=== PATIENT | female | born 1965 | race Caucasian/White ===

== ENCOUNTER → 2019-03-06 | Outpatient (CLI) | payer BC ==
[~2019-03-06] MED LIST: ACYCLOVIR 800800 MG PO; AMOXICILLIN 50500 MG PO; CELEXA40 MG PO; CENTRUM SILVER1 EAC4 PO; CLONAZEPAM 0.50.5 M1 PO; FISH OIL 1,4001 EACH PO; FLEXERIL PO; FLONASE 0.05%50 MCG NARES; GABAPENTIN100 MG PO; IBUPROFEN 800800 M1 PO; LEXAPRO 10 MG T10 M2 PO; MEDROLDOSEPACK PO; PRILOSEC 20 MG20 MG PO; TYLENOL WITH CO1 TA1 PO; ULTRAM 50MG TAB50 MG PO; VENTOLIN HFA 1818 GM INH; WELLBUTRIN XL150 MG PO
== END ==
LOC: M.PC 13:22
DX: M47.22 Other spondylosis with radiculopathy, cervical region (principal); M47.814 Spondylosis without myelopathy or radiculopathy, thoracic region; M50.10 Cervical disc disorder with radiculopathy, unspecified cervical region; Z88.8 Allergy status to other drugs, medicaments and biological substances; Z79.899 Other long term (current) drug therapy

== ENCOUNTER → 2019-03-08 | Outpatient (CLI) | payer BC | LOC: M.MRI 14:02 | DX: M47.22 Other spondylosis with radiculopathy, cervical region (principal); M25.78 Osteophyte, vertebrae; M48.02 Spinal stenosis, cervical region; M50.122 Cervical disc disorder at C5-C6 level with radiculopathy ==

== ENCOUNTER → 2020-01-13 | Outpatient (CLI) | payer BC | LOC: M.MRI 12-27 15:23 | PROVIDERS: ATTEND Psychiatry & Neurology Neuromuscular Medicine | DX: M50.10 Cervical disc disorder with radiculopathy, unspecified cervical region (principal); R51.9 Headache, unspecified; G47.00 Insomnia, unspecified; F41.9 Anxiety disorder, unspecified; M48.02 Spinal stenosis, cervical region; R90.82 White matter disease, unspecified ==

== ENCOUNTER → 2020-10-13 | Outpatient (CLI) | payer BC | LOC: M.CT 13:00 | PROVIDERS: ATTEND Specialist | DX: K76.89 Other specified diseases of liver (principal); N28.89 Other specified disorders of kidney and ureter; N28.1 Cyst of kidney, acquired; M54.9 Dorsalgia, unspecified; R31.9 Hematuria, unspecified ==